=== PATIENT | female | born 1970 | race African-American/Black ===

== ENCOUNTER 2018-08-18 01:30 | Emergency (ER) | payer SELFPAY ==
[2018-08-18] MEDS ORDERED: HYDROMORPHONE HCL INJ/PF 2 MG/ML AMPULE IV ONE (02:28)
[2018-08-18] MEDS ORDERED: NORMAL SALINE 1000 ML 1,000 ML IV ONE (02:28)
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
[2018-08-18] MEDS ORDERED: HYDROCODONE/ACETAMINOPHEN 5-325 MG (6 TAB/ER DISP) PO PRN (04:46)
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
[2018-08-18 07:37] VITALS: BP 115/61
== END 2018-08-18 08:00 | disposition home or self-care (01) ==
LOC: ER 01:30
DX: S00.83XA Contusion of other part of head, initial encounter (principal); S09.90XA Unspecified injury of head, initial encounter; Y09 Assault by unspecified means
CPT/HCPCS: 99284; 96361; 96374; 70450; 70486; 71260; 72125; 72131; J1170; J7030